=== PATIENT | female | born 1960 | race Caucasian/White ===

== ENCOUNTER 2022-04-04 15:46 | Emergency (ER) | payer MEDICARE, SELFPAY ==
--- NOTE | 2022-04-04 15:58 | XR_ITS ---
PROCEDURE INFORMATION: Exam: XR Right Ankle Exam date and time: 04/04/2022 4:14 PM Age: 62 years old Clinical indication: Pain; Ankle; Right; Additional info: Fall TECHNIQUE: Imaging protocol: Radiologic exam of the Right ankle. Views: 3 or more views. COMPARISON: No relevant prior studies available. FINDINGS: Bones/joints: Fracture at the base of the 5th metatarsal. There is mild irregularity along the medial aspect of the talus without definite fracture identified. No dislocation. Plantar and posterior calcaneal enthesophytes. Soft tissues: Unremarkable. IMPRESSION: 1. Fracture at the base of the 5th metatarsal. 2. Mild irregularity along the medial aspect of the talus without definite fracture identified. Cross-sectional imaging can be obtained as clinically indicated.
--- NOTE | 2022-04-04 15:58 | XR_ITS ---
PROCEDURE INFORMATION: Exam: XR Right Foot Exam date and time: 04/04/2022 4:15 PM Age: 62 years old Clinical indication: Pain; Foot; Right; Additional info: Fall TECHNIQUE: Imaging protocol: Radiologic exam of the Right foot. Views: 3 or more views. COMPARISON: CR XR ANKLE RT MIN 3V 04/04/2022 4:14 PM FINDINGS: Bones/joints: Fracture at the base of the 5th metatarsal. Otherwise, degenerative changes with no other acute abnormality identified. Plantar and posterior calcaneal enthesophytes noted. Soft tissues: Normal. IMPRESSION: Fracture of the base of the 5th metatarsal.
[2022-04-04 16:10] VITALS: BP 113/67; PULSE 91; RESP 17; TEMP 36.8; O2SAT 98; BMI 37.3
--- NOTE | 2022-04-04 16:21 | EXP.UTC ---
Discharge Plan Disposition Patient Disposition: Home, Self-Care Condition: Good Referrals Follow up/Referrals: William Morales JR, MD [Physician] - See instructions (Call office in the morning for same day appointment for tomorrow) Provider,MD Valentino [Primary Care Provider] - See instructions Activity Restrictions/Add. Instructions Additional Instructions/Restrictions: Call orthopedic office first thing in the morning for appointment to see Dr Morales Tomorrow *weight bearing as tolerated *RICE, Rest the extremity, Ice 15-20 minutes 3-4 times daily, Compress- wear the prasanna wrap as discussed as much as possible to help reduce swelling and pain, Elevate the extremity when at rest *Walking boot is for support and help control swelling, . Be sure that is not to tight but not to loose either *Elevate when resting? *Ibuprofen 600-800mg every 6-8 hours as needed for pain an inflammation if your Doctor has said that you can take it. If need something more can take Tylenol in between doses of Ibuprofen to help Clinical Impressions Clinical Impression: Metatarsal bone fracture Qualifiers: Encounter type: initial encounter Metatarsal bone: fifth Fracture type: closed Fracture alignment: nondisplaced Laterality: right Qualified Code(s): S92.354A - Nondisplaced fracture of fifth metatarsal bone, right foot, initial encounter for closed fracture Instructions Patient Instructions: How To Perform RICE (Rest, Ice, Compress, Elevate) Discharge ED Provider: Maggi Roca [facility] [place] HPI General Stated complaint: [id number] injured R Foot Mode of Arrival: Ambulatory Source of Information: Patient Limitations: No Limitations Time Seen by Provider: 04/04/22 16:21 Description of Symptoms (Recalled from Triage Doc. by RN): PATIENT STATES SHE TWISTED HER FOOT WHEN SHE FELL GOING TO BATHROOM ON FRIDAY NIGHT HEENT Symptoms (Recalled from RN notes): No Resp Symptoms (Recalled from RN notes): No Skin Symptoms (Recalled from RN notes): No MS Symptoms (Recalled from RN notes): Yes Functional Status (Recalled from RN notes): WNL History of Present Illness Provider Complaint: Patient states that she got up the other night to go to the bathroom and she twisted her right foot States that ever since she has been having pain at the base of toes up the top of foot into ankle States that she thought it would get better and borrowed her aunts foot brace States that it has helped it some but today she was still hurting at times when she would walk on it so she came in to get it checked Related Data Allergies Allergy/AdvReac Type Severity Reaction Status Date / Time ciprofloxacin [From Cipro] Allergy Verified 04/04/22 16:20 Worker's Comp Is this a Worker's Comp case?: No [facility] Disclaimer: The information contained in this section may have been updated after the patient was seen, as this information can be updated by other users. Medical History (Updated 04/04/22 @ 17:52 by Maggi Roca APRN) Anxiety Diabetes mellitus, type 2 History of gastroesophageal reflux (GERD) Hyperlipidemia Hypertension Urinary tract infection Surgical History (Updated 04/04/22 @ 16:19 by Cydney Og RN) History of section History of thyroidectomy Social History (Updated 04/04/22 @ 16:19 by Cydney Og RN) Smoking Status: Current every day smoker alcohol intake: never current occupational status: other Travel in the last 8 weeks: None ROS Obtained: Yes All systems reviewed & no additional complaints except as documented and Yes Systems reviewed as appropriate & no additional complaints except as documented Constitutional Constitutional: Reports system reviewed and no additional complaints, except as documented and Reports as per HPI ENT Ears, Nose, Mouth, and Throat: Reports system reviewed and no additional complaints, except as documented and Reports as per HPI Cardiovascular Cardiovascular: Reports system reviewed and no
[2022-04-04 17:58] VITALS: BP 113/67; PULSE 91; RESP 17; TEMP 36.8; O2SAT 98
== END 2022-04-04 18:08 | disposition home or self-care (01) ==
PROVIDERS: Emergency Provider Nurse Practitioner
DX: S92.354A Nondisplaced fracture of fifth metatarsal bone, right foot, initial encounter for closed fracture (principal); W18.49XA Other slipping, tripping and stumbling without falling, initial encounter
CPT/HCPCS: 73610; 73630; 99213; G0463

== ENCOUNTER → 2022-05-17 08:52 | Outpatient (CLI) | payer MEDICARE, SELFPAY ==
--- NOTE | 2022-05-17 08:57 | XR_ITS ---
FINAL REPORT CLINICAL HISTORY: rt foot fracture f/u COMPARISON: 04/04/2022 FINDINGS: RIGHT FOOT 3 views of the right foot were obtained. There has been interval healing of the proximal 5th metatarsal fracture. No new fracture is identified. There are mild degenerative changes and calcaneal enthesophytes. Soft tissues are unremarkable. IMPRESSION: Interval healing of proximal 5th metatarsal fracture. Reviewed, Interpreted and Dictated by Shan Gomez III, MD Transcribed by Kristi Cloud Authenticated and [facility]
== END ==
PROVIDERS: Visit Provider Orthopaedic Surgery
DX: S92.301A Fracture of unspecified metatarsal bone(s), right foot, initial encounter for closed fracture (principal); M79.671 Pain in right foot
CPT/HCPCS: 73630

== ENCOUNTER → 2022-06-28 08:51 | Outpatient (CLI) | payer MEDICARE, SELFPAY ==
--- NOTE | 2022-06-28 08:58 | XR_ITS ---
FINAL REPORT CLINICAL HISTORY: Recent right 5th metatarsal fracture COMPARISON: 05/17/2022 FINDINGS: RIGHT FOOT 3 views of the right foot were obtained. There is a bony fragment adjacent to the base of the 5th metatarsal. The appearance is unchanged and probably due to healing fracture. Fracture line remains partially visible. There is a small plantar spur. Visualized joint spaces are normally aligned. Soft tissues are unremarkable. IMPRESSION: Healing fracture base of the 5th metatarsal. Small plantar spur. Reviewed, Interpreted and Dictated by Emmanuel Rogers MD Transcribed by Linda Gomez Authenticated and [facility]
== END ==
LOC: RAD 08:52
PROVIDERS: PCP Internal Medicine; Visit Provider Orthopaedic Surgery
DX: M79.671 Pain in right foot (principal); S92.301A Fracture of unspecified metatarsal bone(s), right foot, initial encounter for closed fracture
CPT/HCPCS: 73630

== ENCOUNTER 2024-02-27 20:30 | Emergency (ER) | payer MEDICARE, SELFPAY ==
[2024-02-27 20:32] VITALS: BP 109/59; PULSE 71; RESP 17; TEMP 36.5; O2SAT 96; BMI 40.7
--- NOTE | 2024-02-27 20:45 | XR_ITS ---
PROCEDURE INFORMATION: Exam: XR Left Foot Exam date and time: 02/27/2024 8:57 PM Age: 64 years old Clinical indication: Injury or trauma; Fall; Other: Pain; Additional info: Fall, injury TECHNIQUE: Imaging protocol: Radiologic exam of the left foot. Views: 3 or more views. COMPARISON: No relevant prior studies available. FINDINGS: Bones/joints: Calcaneal spurring. No acute fracture or dislocation. Soft tissues: Normal. IMPRESSION: No acute findings.
--- NOTE | 2024-02-27 20:45 | CT_ITS ---
PROCEDURE INFORMATION: Exam: CT Pelvis Without Contrast, Skeleton Exam date and time: 02/27/2024 9:03 PM Age: 64 years old Clinical indication: Hip pain; Left hip; Additional info: Left hip pain TECHNIQUE: Imaging protocol: Computed tomography of the pelvis without contrast. Exam focused on the skeleton. Radiation optimization: All CT scans at this facility use at least one of these dose optimization techniques: automated exposure control; mA and/or kV adjustment per patient size (includes targeted exams where dose is matched to clinical indication); or iterative reconstruction. COMPARISON: No relevant prior studies available. FINDINGS: Bones/joints: Unremarkable. No acute fracture. No dislocation. Soft tissues: Unremarkable. IMPRESSION: No acute findings.
--- NOTE | 2024-02-27 20:46 | HMH.EDGENADL ---
Discharge Plan Disposition Patient Disposition: Home, Self-Care Prescriptions Prescriptions: No Action levothyroxine 125 mcg capsule 125 mcg PO DAILY furosemide 20 mg tablet 20 mg PO BID vitamin E89-gixau acid 1,000-400 mcg tablet, sublingual sublingual gabapentin 600 mg tablet 600 mg PO HS omeprazole 40 mg capsule,delayed release(DR/EC) 40 mg PO DAILY lisinopril 20 mg tablet 20 mg PO DAILY methocarbamol 500 mg tablet 500 mg PO HS acetaminophen [Tylenol Extra Strength] 500 mg tablet 500 mg PO Q6H PRN ibuprofen 200 mg tablet 200 mg PO Q6H PRN nicotine 21-14-7 mg/24 hr patch, TD daily, sequential See Rx Instructions transdermal .COMPLEX Qty: 56 0RF Rx Instructions: apply 1-21 mg NICOTINE PATCH daily for 28 days; follow with 1-14 mg PATCH daily for 14 days, then 1-7mg PATCH daily for 14 days transdermal amlodipine 5 mg tablet 5 mg PO DAILY Referrals Follow up/Referrals: Tommie Liu DO [Staff Physician] - See instructions Nicolle Brice [Primary Care Provider] - See instructions Activity Restrictions/Add. Instructions Additional Instructions/Restrictions: No evidence of any fractures or dislocations but as discussed there could be significant soft tissue abnormalities given the duration of the symptom particular in your left hip I recommend follow-up with our orthopedic surgeon Dr. Liu for evaluation of possible MRI and further discussion. You may take [id number] pain medication such as Tylenol ibuprofen ice to the areas etc. Clinical Impressions Clinical Impression: Strain of left hip, Strain of great toe of left foot Print Language Print Language: Croatian Discharge ED Provider: Sim [facility] HPI General Chief complaint: Fall Stated complaint: Left hip,leg pain,fell 2 months ago Time Seen by Provider: 02/27/24 20:41 History of Present Illness HPI narrative: Patient is a 64-year-old female present today with multiple plaints primarily left hip pain and left foot pain. States that a few weeks ago she fell off of his 0 turn mower had significant pain at that time but fell again recently with worsening pain in the left hip and she states I think I broke my toe. Has been able to bear weight but with significant pain no other injuries elsewhere she denies any significant back pain any saddle anesthesia lower extremity paralysis incontinence etc. Related Data Home Medications ?Medication ?Instructions ?Recorded ?Confirmed acetaminophen 500 mg tablet 500 mg PO Q6H PRN 04/19/22 06/28/22 (Tylenol Extra Strength) furosemide 20 mg tablet 20 mg PO BID 04/19/22 06/28/22 gabapentin 600 mg tablet 600 mg PO HS 04/19/22 06/28/22 ibuprofen 200 mg tablet 200 mg PO Q6H PRN 04/19/22 06/28/22 levothyroxine 125 mcg capsule 125 mcg PO DAILY 04/19/22 06/28/22 lisinopril 20 mg tablet 20 mg PO DAILY 04/19/22 06/28/22 methocarbamol 500 mg tablet 500 mg PO HS 04/19/22 06/28/22 omeprazole 40 mg capsule,delayed 40 mg PO DAILY 04/19/22 06/28/22 release vitamin B12 1,000 mcg-folic acid tab sublingual 04/19/22 06/28/22 400 mcg sublingual tablet amlodipine 5 mg tablet 5 mg PO DAILY 06/28/22 06/28/22 Previous Rx's ?Medication ?Instructions ?Recorded nicotine See Rx Instructions transdermal 04/19/22 21mg/24hr-14mg/24hr-7mg/24hr daily .COMPLEX #56 patches transderm patches,sequentl Allergies Allergy/AdvReac Type Severity Reaction Status Date / Time ciprofloxacin (From Cipro) Allergy Verified 06/28/22 09:14 [facility] Disclaimer: The information contained in this section may have been updated after the patient was seen, as this information can be updated by other users. Medical History Anxiety Diabetes mellitus, type 2 History of gastroesophageal reflux (GERD) Hyperlipidemia Hypertension Urinary tract infection Surgical History History of section History of thyroidectomy Social History Smoking Status: Current every day smoker alcohol intake: never current occupational status: other Travel in the last 8 weeks: None Other Medical History Have you received the Pneumonia Vaccine: Yes ROS Obtained: Yes All systems reviewed & no additional complaints except as documented Physical Exam General General appearance: alert and in no apparent distress Respiratory Respiratory exam: Present normal lung sounds bilaterally Cardiovascular Cardiovascular exam: Present regular rate Extremities Exam Extremities exam: Present other (Pain with range of motion before range of motion in the left hip body habitus limits exam left foot with significant swelling and ecchymosis over the dorsal aspect of the great toe and the metatarsal phalangeal joint of the first and second digits) Neurological Exam Neurological exam: Present alert and oriented X3 Medical Decision Making Medical Records Screening: Per USPSTF and CDC recommendations, given the prevalence of disease in our region, it is our hospital?s policy to screen for HIV and viral Hepatitis for all patients aged 18 and over and those with ongoing risk factors. [place] Inquiry Pt receiving controlled substance: No Vital Signs: 02/27/24 20:32 Temperature 97.7 F Temperature Source Oral Pulse Rate [Right] 71 Respiratory Rate 17 Blood Pressure [Right Arm] 109/59 L Blood Pressure Mean [Right Arm] 75 Blood Pressure Source [Right Arm] Automatic Cuff Blood Pressure Position [Right Arm] Sitting 02 Sat by Pulse Oximetry 96 Oxygen Delivery Method Room Air Orders (Tests/Meds): ED MEDICATIONS Discontinued Medications Generic Name Dose Route Start Last Admin Trade Name Dannyq PRN Reason Stop Dose Admin Ketorolac Tromethamine 30 mg 02/27/24 20:45 02/27/24 21:00 Ketorolac 30mg/Ml Vial IM 02/27/24 20:46 30 mg ONCE ONE Administration ORDERS Category Date Time Status CT bony pelvis Stat Cat Scan 02/27/24 20:45 Completed Foot XR left minimum 3 views [XR foot LT min 3V] Stat Exams 02/27/24 20:45 Completed Medical Decision Narrative: 64-year-old above history and physical body habitus severely limits exam also will limit radiation penetration will get CT bony pelvis of the left hip and pelvis also get a plain film of the foot to evaluate for strain versus bony injury such as fracture or dislocation. Reassessment 10:[address] scan of the patient's hip and x-ray of the patient's foot was performed which I personally interpreted showed no fractures or dislocations reassessment patient remains stable able to bear weight she will follow-up with Dr. Liu her orthopedic surgeon for evaluation of possible MRI to look further into soft tissue abnormalities patient was discharged in improved and stable condition. Critical Care Critical Care Time Critical Care Time: No
[2024-02-27] MEDS: KETOROLAC 30MG/ML VIAL 30 MG IM (21:00)
[2024-02-27 23:03] VITALS: BP 121/88; PULSE 59; RESP 18; TEMP 36.6; O2SAT 97
== END 2024-02-27 23:05 | disposition home or self-care (01) ==
PROVIDERS: Emergency Provider Student in an Organized Health Care Education/Training Program; PCP Internal Medicine
DX: S96.912A Strain of unspecified muscle and tendon at ankle and foot level, left foot, initial encounter (principal); S96.012A Strain of muscle and tendon of long flexor muscle of toe at ankle and foot level, left foot, initial encounter; M25.552 Pain in left hip; M79.605 Pain in left leg; M79.672 Pain in left foot; W19.XXXA Unspecified fall, initial encounter; Y93.89 Activity, other specified; Y92.9 Unspecified place or not applicable
CPT/HCPCS: 72192; 73630; 96372; 99284; J1885

== ENCOUNTER 2024-06-28 17:30 | Emergency (ER) | payer MEDICARE, SELFPAY ==
[2024-06-28 17:52] VITALS: BP 127/45; PULSE 61; RESP 19; TEMP 37.1; O2SAT 96; BMI 36.6
--- NOTE | 2024-06-28 18:49 | XR_ITS ---
PROCEDURE INFORMATION: Exam: XR Right Foot Exam date and time: 06/28/2024 6:49 PM Age: 64 years old Clinical indication: Pain; Foot; Right; Additional info: Digits 2-4 briusing and pain, hyperextension TECHNIQUE: Imaging protocol: Radiologic exam of the right foot. Views: 3 or more views. COMPARISON: CR XR FOOT RT MIN 3V 06/28/2022 8:59 AM FINDINGS: Bones/joints: Moderate osteophytosis and degenerative changes involve the 1st MTP joint. Intermediate sized enthesophytes involving the calcaneus. Soft tissues: Mild right toes soft tissue swelling without acute osseous abnormality. IMPRESSION: 1. Moderate osteophytosis and degenerative changes involve the 1st MTP joint. 2. Mild right toes soft tissue swelling without acute osseous abnormality.
[2024-06-28] MEDS: IBUPROFEN 600 MG TABLET PO (19:13)
--- NOTE | 2024-06-28 19:15 | PC.NURSE ---
Report received from Noel HAMLIN Pt awake and alert Skin pink warm and dry Speech clear and appropriate. Resting quietly in recliner
--- NOTE | 2024-06-28 19:16 | ED_ITS ---
Discharge Plan Disposition Patient Disposition: Home, Self-Care Chief Complaint: PAIN Prescriptions Prescriptions: No Action levothyroxine 125 mcg capsule 125 mcg PO DAILY furosemide 20 mg tablet 20 mg PO BID vitamin T62-yabrf acid 1,000-400 mcg tablet, sublingual sublingual gabapentin 600 mg tablet 600 mg PO HS omeprazole 40 mg capsule,delayed release(DR/EC) 40 mg PO DAILY lisinopril 20 mg tablet 20 mg PO DAILY methocarbamol 500 mg tablet 500 mg PO HS acetaminophen [Tylenol Extra Strength] 500 mg tablet 500 mg PO Q6H PRN ibuprofen 200 mg tablet 200 mg PO Q6H PRN nicotine 21-14-7 mg/24 hr patch, TD daily, sequential See Rx Instructions transdermal .COMPLEX Qty: 56 0RF Rx Instructions: apply 1-21 mg NICOTINE PATCH daily for 28 days; follow with 1-14 mg PATCH daily for 14 days, then 1-7mg PATCH daily for 14 days transdermal amlodipine 5 mg tablet 5 mg PO DAILY Referrals Follow up/Referrals: Abril Lawson [Primary Care Provider] - See instructions Activity Restrictions/Add. Instructions Additional Instructions/Restrictions: Follow-up with your family doctor as needed for this visit to the emergency department. Take Tylenol 1000 mg every 6 hours (4 times daily) and ibuprofen 400 mg every 6 hours (4 times daily) as needed with food and water to prevent GI upset and kidney damage. Clinical Impressions Clinical Impression: Bilateral foot pain Print Language Print Language: Belarusian Discharge ED Provider: David Howard General Adult HPI General Chief complaint: PAIN Stated complaint: bottom of L foot bruised, toes on R bruised Time Seen by Provider: 06/28/24 17:58 Mode of Arrival: Ambulatory Source of Information: Patient Description of Symptoms (Recalled from ER Triage Doc. by RN): pt presents to ED with c/o bruising on left and right foot. pt reports on the bottom of her left foot she has a bruise, pt hit it on something at her house. pt reports bruising on right foot from a small fall getting out of bed this am. History of Present Illness HPI narrative: Please note that above description of symptoms, in this electronic medical record under categorization of recalled from ER triage doctor by RN are reflective of an initial nursing assessment, however, is not reflective of my full history and physical exam that was personally taken and clarified. Consequentially, this preceding description of symptoms, which may include the patient's categorized chief complaint in the EMR, do not reflect my personal clinical impression, and the ultimate description of history of present illness and patient stated complaints should be deferred to this section of the note. Unless stated otherwise or congruent with this section of the note, additional signs, symptoms, or incongruence should be interpreted as inaccurate with my clinical impression. Related Data Home Medications ?Medication ?Instructions ?Recorded ?Confirmed acetaminophen 500 mg tablet 500 mg PO Q6H PRN 04/19/22 06/28/22 (Tylenol Extra Strength) furosemide 20 mg tablet 20 mg PO BID 04/19/22 06/28/22 gabapentin 600 mg tablet 600 mg PO HS 04/19/22 06/28/22 ibuprofen 200 mg tablet 200 mg PO Q6H PRN 04/19/22 06/28/22 levothyroxine 125 mcg capsule 125 mcg PO DAILY 04/19/22 06/28/22 lisinopril 20 mg tablet 20 mg PO DAILY 04/19/22 06/28/22 methocarbamol 500 mg tablet 500 mg PO HS 04/19/22 06/28/22 omeprazole 40 mg capsule,delayed 40 mg PO DAILY 04/19/22 06/28/22 release vitamin B12 1,000 mcg-folic acid tab sublingual 04/19/22 06/28/22 400 mcg sublingual tablet amlodipine 5 mg tablet 5 mg PO DAILY 06/28/22 06/28/22 Previous Rx's ?Medication ?Instructions ?Recorded nicotine See Rx Instructions transdermal 04/19/22 21mg/24hr-14mg/24hr-7mg/24hr daily .COMPLEX #56 patches transderm patches,sequentl Allergies Allergy/AdvReac Type Severity Reaction Status Date / Time ciprofloxacin (From Cipro) Allergy Verified 06/28/22 09:14 [facility] Disclaimer: The information contained in this section may have been updated after the patient was seen, as this information can be updated by other users. Medical History Anxiety Diabetes mellitus, type 2 History of gastroesophageal reflux (GERD) Hyperlipidemia Hypertension Urinary tract infection Surgical History History of section History of thyroidectomy Social History (Reviewed 06/28/22 @ 09:15 by CHRISTOPHER Gibson Smoking Status: Current every day smoker alcohol intake: never current occupational status: other Travel in the last 8 weeks: None Have you lived/traveled outside [place] in past 30 days?: No Contact w/someone who lives/traveled outside [place] past 30 days?: No Exposure to someone with infectious disease in past 14 days?: No Do you have a fever (greater than 100.4 F or 38 C)?: No Have you tested positive for COVID-19: No Exposed to someone with COVID-19 in past 14 days?: No Do you have a sore throat?: No Do you have a cough?: No Do you have any weakness?: No Do you have any diarrhea?: No Are you experiencing any unusual bleeding?: No Do you have any muscle aches/pain?: No Do you have any abdominal pain?: No Are you experiencing loss of taste or smell?: No Other Medical History Have you received the Pneumonia Vaccine: Yes ROS Obtained: Yes All systems reviewed & no additional complaints except as documented Physical Exam General General appearance: alert Head Head exam: atraumatic and normocephalic Eye Eye exam: Present normal appearance, PERRL and EOMI Neck Neck exam: Present normal inspection, full ROM and trachea midline Respiratory Respiratory exam: Absent respiratory distress, wheezes, stridor, accessory muscle use or prolonged expiratory phase Cardiovascular Cardiovascular exam: Present other (Pulses equal symmetric in upper and lower extremities) Abdominal Exam Abdominal exam: Present soft; Absent distention, tenderness or pulsatile mass Extremities Exam Extremities exam: Absent edema Neurological Exam Neurological exam: Present alert, oriented X3 and CN II-XII intact; Absent motor sensory deficit Skin Skin exam: Present warm and dry; Absent diaphoresis or erythema Medical Decision Making Medical Records Medical records reviewed: Yes I reviewed the patient's medical records. Screening: Per USPSTF and CDC recommendations, given the prevalence of disease in our region, it is our hospital?s policy to screen for HIV and viral Hepatitis for all patients aged 18 and over and those with ongoing risk factors. [place] Inquiry Pt receiving controlled substance: No [place] was queried for this patient: No Vital Signs: 06/28/24 17:52 Temperature 98.8 F Temperature Source Oral Pulse Rate [Left Radial] 61 Respiratory Rate 19 Blood Pressure [Right Arm] 127/45 L Blood Pressure Mean [Right Arm] 72 02 Sat by Pulse Oximetry 96 Orders (Tests/Meds): ED MEDICATIONS Discontinued Medications Generic Name Dose Route Start Last Admin Trade Name Robel PRN Reason Stop Dose Admin Ibuprofen 600 mg 06/28/24 18:49 06/28/24 19:13 Ibuprofen 600 Mg Tablet PO 06/28/24 18:50 600 mg ONCE ONE Administration ORDERS Category Date Time Status Foot XR right minimum 3 views [XR foot RT min 3V] Stat Exams 06/28/24 18:49 Taken POCUS Point of Care (ER Only) Stat Exams 06/28/24 18:25 Ordered HIV Combo Stat Lab 06/28/24 17:57 Ordered Hepatitis C Ab Qual. W/ RFX Stat Lab 06/28/24 17:57 Ordered Medical Decision Narrative: 64-year-old female no relevant medical history presenting with bilateral foot pain. She states that she fell onto her right foot today and the toes bent upward underneath her. Has been able to walk, but with significant pain. Shortly after that, she was walking and stepped on a drip pain holding an appliance with her left foot and is having bruising on the arch of her left foot. Able to walk, but with significant pain as well. Took Tylenol, this seemed to help. Came in for further evaluation to make sure nothing was broken. History obtained the patient. On arrival, very clinically well. Ice and ibuprofen were administered. She does have bruising about the 2nd through 4th digits on the ventral aspect of her right foot and plantar bruising, sole of her left foot. Range of motion intact. Bedside [id number] ultrasound was performed, no evidence of fascial tear on the plantar surface of her left foot. X-rays to be obtained of the right foot. On independent interpretation, no acute bony abnormality of the foot. Because patient at baseline without signs or symptoms of clinical decompensation, deemed appropriate for discharge. Results were relayed to patient who voiced understanding and were agreeable to outpatient management and follow up. I discussed my clinical impression with patient and answered all questions. At this time, the evidence for any other entities in the differential is insufficient to warrant any further testing or ED observation. This was explained as well. Advisory was given that persistent or worsening symptoms require further evaluation. I confirmed the understanding of this discussion. [employer]ice disclaimer Much of this encounter note is an electronic hr shared services consultant spoken language to printed text. Electronic hr shared services consultant of the spoken language may permit errors. Although I have reviewed the note, some errors may still exist. Procedures Limited Ultrasound Indication:: Limited soft tissue ultrasound Indication: Soft tissue swelling on the plantar surface of the left foot Identified structures: Location: Plantar structures left foot Findings: Hematoma, otherwise intact plantar fascia Impression: -Normal limited soft tissue ultrasound other than hematoma Images were saved to permanent archive The study was technically adequate Soft Tissue CPT Codes: CPT Neck: 47255-18 CPT Upper extremity: 54649-42 CPT Axilla: 32422-89 CPT Chest wall: 80816-40 CPT Breast: 15508-46-TE/LT (complete), 53415-62-RT/LT (limited), CPT Upper Back: 09758-63 CPT Lower Back: 60307-49 CPT Abdominal Wall: 15757-80 CPT Pelvic Wall: 96213-32 CPT Lower Extremity: 96338-66 CPT Other Soft Tissue: 43863-03 This study was performed by me, and I personally interpreted all images/videos. Based on my clinical judgement, these images were adequate and did not necessitate further imaging. Critical Care Critical Care Time Critical Care Time: No
--- NOTE | 2024-06-28 19:16 | PC.NURSE ---
Report received from Noel RN Pt awake alert and oriented Pt resting quietly in recliner Skin pink warm and dry REsp full and easy Speech clear and appropriate
[2024-06-28 19:47] VITALS: BP 130/50; PULSE 61; RESP 20; TEMP 37.1; O2SAT 98
== END 2024-06-28 19:50 | disposition home or self-care (01) ==
PROVIDERS: Emergency Provider Emergency Medicine; PCP Family Medicine Sports Medicine
DX: M79.671 Pain in right foot (principal); M79.672 Pain in left foot; S90.31XA Contusion of right foot, initial encounter; S90.32XA Contusion of left foot, initial encounter; F17.210 Nicotine dependence, cigarettes, uncomplicated; X58.XXXA Exposure to other specified factors, initial encounter; Y93.89 Activity, other specified; Y92.009 Unspecified place in unspecified non-institutional (private) residence as the place of occurrence of the external cause
CPT/HCPCS: 73630; 99283

== ENCOUNTER 2024-08-03 12:24 | Outpatient (RCR) | payer MEDICARE, SELFPAY | END 2024-08-03 23:59 | disposition home or self-care (01) | LOC: PT 12:24 | PROVIDERS: PCP Family Medicine; Visit Provider Family Medicine | DX: M79.671 Pain in right foot (principal); M25.511 Pain in right shoulder | CPT/HCPCS: 97163 ==